=== PATIENT | female | born 1995 | race Caucasian/White ===

== ENCOUNTER 2017-12-01 12:11 | Emergency (ER) | payer SELFPAY ==
[2017-12-01] MEDS: KETOROLAC 30 MG INJ IM (13:24)
== END 2017-12-01 14:35 | disposition home or self-care (01) ==
LOC: FTE 12:11
DX: M94.0 Chondrocostal junction syndrome [Tietze] (principal); J45.909 Unspecified asthma, uncomplicated
CPT/HCPCS: 71045; 81025; 93005; 96372; 99284-25